=== PATIENT | male | born 1965 | race Caucasian/White ===

== ENCOUNTER 2017-05-29 23:22 | Emergency (ER) | payer OTHER ==
[2017-05-29] MEDS ORDERED: Metoprolol Tartrate 5 MG/5 ML VIAL ONE ×2 (23:36→23:56)
[2017-05-29] MEDS ORDERED: Nitroglycerin 50 MG/250 ML BOT 250 ML ONE (23:36)
[2017-05-29] MEDS ORDERED: Enoxaparin Sodium 100 MG/ML SYRINGE ONE (23:39)
[2017-05-30 00:05] LABS: #Basophils 0.1 thou/uL (0.0-0.2); #Eosinphils 0.1 thou/uL (0.0-0.7); #Lymphocytes 2.1 thou/uL (1.20-3.40); #Monocytes 0.9 thou/uL (0.11-0.59); #Neutrophils 6.5 thou/uL (1.40-6.50); %Basophils 1.1 % (0.0-1.0); %Eosinophils 0.9 % (0.0-10.0); %Lymphocytes 21.7 % (21.0-51.0); %Monocytes 9.1 % (0.0-10.0); %Neutrophils 67.3 % (42.0-75.0); Hemoglobin 18.5 g/dL (14.0-18.0); Mean Corpuscular HGB CONC 35.5 g/dL (32.0-36.0); Mean Corpuscular Hemoglobin 32.2 pg (27.0-31.0); Mean Corpuscular Volume 90.6 fl (80.0-94.0); Mean Platelet Volume 7.8 fL (7.4-10.4); Platelet Count 160 thou/uL (130-400); RBC Distribution Width 11.4 % (11.5-14.5); Red Blood Cell (RBC) Count 5.75 mill/uL (4.70-6.10); White Blood Cell (WBC) Count 9.7 thou/uL (4.8-10.8)
[2017-05-30 00:10] LABS: ALT (SGPT) 30 U/L (8-55); AST (SGOT) 19 U/L (5-34); Albumin 4.5 g/dL (3.5-5.0); Alkaline Phosphatase 61 U/L (40-150); Anion Gap 18 mmol/L (10-20); BUN (Urea Nitrogen) 22 mg/dL (8.9-20.6); Bilirubin, Total 0.5 mg/dL (0.2-1.2); Calc. Creatinine Clearance 0 mL/min (70-130); Calcium 9.5 mg/dL (7.8-10.44); Carbon Dioxide 20 mmol/L (22-29); Chloride 109 mmol/L (98-107); Estimated GFR-MDRD 85; Globulin 3.4 g/dL (2.4-3.5); Glucose 140 mg/dL (70-105); Lipase 79 U/L (8-78); Protein, Total 7.9 g/dL (6.0-8.3); Sodium 143 mmol/L (136-145)
[2017-05-30] MEDS ORDERED: Metoprolol Tartrate 5 MG/5 ML VIAL ONE (00:10)
[2017-05-30 00:13] LABS: CKMB 2.2 ng/mL (0-6.6); Troponin I 0.079 ng/mL (< 0.028)
[2017-05-30] MEDS ORDERED: Lorazepam 2 MG/ML VIAL ONE (00:17)
--- NOTE | 2017-05-30 10:40 | RAD ---
PORTABLE CHEST: DATE: 05/29/17. FINDINGS: No prior films were available for comparison. The heart is mildly enlarged, but there is no vascula r congestion, edema, or pleural effusion. The lungs are clear. The trachea is midline. The bony s tructures appear intact. IMPRESSION: Borderline heart size. POS: HOME
== END 2017-05-30 01:21 | disposition short-term general hospital (02) ==
LOC: BURERS 23:22
DX: I24.9 Acute ischemic heart disease, unspecified (principal); I10 Essential (primary) hypertension; E11.9 Type 2 diabetes mellitus without complications; F41.9 Anxiety disorder, unspecified; N40.0 Benign prostatic hyperplasia without lower urinary tract symptoms
CPT/HCPCS: 36416; 71010; 80053; 82553; 83690; 84484; 85025; 93005; 94760; 96365; 96366; 96372; 96375; J1650; J2060